=== PATIENT | male | born 1970 | race Caucasian/White ===

== ENCOUNTER 2017-04-17 19:45 | Inpatient (IN) | payer OTHER ==
[~2017-04-17] VITALS: Ht 180.3 cm; Wt 79.4 kg
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
--- NOTE | ~2017-04-17 | OR ---
Unit #: [id number] #: [id number] Patient: CYNDI VASQUEZ [id number] [address] [address] [id number] I MR#: [id number] NAME: CYNDI VASQUEZ. ROOM: [facility] Date of Procedure: 04/18/2017 Admission Date: 04/17/2017 Surgeon: Matthew Gallardo M.D. : 1970 Attending Physician: Shavonne Paredes M.D. Primary Care Physician: Primary Care Physician No OPERATIVE REPORT PREOPERATIVE DIAGNOSES 1. Right anterior shoulder subcutaneous abscess. 2. Right shoulder septic acromioclavicular joint. POSTOPERATIVE DIAGNOSES 1. Right anterior shoulder subcutaneous abscess. 2. Right shoulder septic acromioclavicular joint. 3. Osteomyelitis, right distal clavicle. PROCEDURES PERFORMED 1. Irrigation and debridement of right shoulder subcutaneous abscess. 2. Arthrotomy of acromioclavicular joint with irrigation and debridement. 3. Right distal clavicle excision. MOHS SURGEON/GENERAL DERMATOLOGIST Franko Mccollum, PGY-2. ANESTHESIA General. ESTIMATED BLOOD LOSS 10 mL. COMPLICATIONS None apparent. SPECIMENS 1. Cultures to microbiology. 2. Distal clavicle bone to pathology. INDICATIONS FOR PROCEDURE Cyndi is a 46-year-old gentleman with a history suspicious for IV drug abuse, although, he denies this currently. He has a swollen erythematous area of the right shoulder. It began apparently over the AC joint. He has an elevated ESR and CRP. Overall, exam and clinical history consistent with AC joint septic arthritis and a large subcutaneous abscess. We discussed irrigation and debridement with arthrotomy of the AC joint with possible distal clavicle excision. He elected to proceed. DESCRIPTION OF PROCEDURE The patient was identified in the preoperative holding area. The operative site was marked. Preoperative antibiotics were administered. Unit #: [id number] #: [id number] Patient: CYNDI VASQUEZ The patient was brought to the operating room and placed supine on the operating table. A general anesthetic was induced. The patient was positioned in a semi-recumbent position with the head of the bed elevated. A bump was placed behind the ipsilateral shoulder. The right arm was prepped and draped in sterile fashion (1) over the AC joint. A saber style incision was made over the area of fluctuance directly over the AC joint. Immediately upon entering through the subcutaneous tissues, a large volume of purulent fluid was encountered. This was cultured. This was evacuated with Yankauer suction. There was subcutaneous fat necrosis and mucopurulent fluid and debris throughout this area. It was brought undermining of the subcutaneous tissues. There was also destruction of the underlying fascia. The wound was irrigated thoroughly and debrided with rongeurs and curettes. There was a clear perforation through the superior AC joint capsule. There was some exposure in the distal clavicle shaft itself and dehiscence of the deltotrapezial fascia in this location. Once we had adequately debrided and irrigated the subcutaneous space down to and including fascia, we then opened the AC joint formally. We extended the perforated area proximally along the shaft of the clavicle and performed subperiosteal dissection and placed Hohmann's around the shaft. The AC joint itself was debrided with rongeurs. Distal clavicle was inspected. Small rongeur was used to assess the firmness of the distal clavicle. The bone here was extremely soft and I was able to essentially bite off a large portion of the distal clavicle with a rongeur alone. This was clinically consistent with osteomyelitis of the distal clavicle. The distal clavicle biopsies were taken with a rongeur. A small microsagittal saw was then used to resect an additional 5 mm of distal clavicle. This afforded better access to the AC joint as well. We continued to irrigate out the area down to the subacromial space. There was no fluid in the subacromial space itself. Once we had adequately debrided this area, we closed the deltotrapezial fascia with a running 0 PDS. We left a small rent open in the AC joint, drained any fluid, and for drainage of any reaccumulating fluid in the AC joint. We then closed the skin incision partially with 3-0 nylon, left the central portion open, packed with Betadine soaked Kerlix. Sterile dressings were applied. DISPOSITION Stable to the recovery room. POSTOPERATIVE PLAN I will follow up the results of the cultures. He will require dressing changes over the superior aspect of the clavicle. Dictated by... Matthew Gallardo M.D. JOSE/allison TD: 04/19/2017 13:16 JOB #: [id number] Unit #: [id number] #: [id number] Patient: CYNDI VASQUEZ OPERATIVE REPORT Page 1 of 1 X Matthew Gallardo MD PROCEDURE OPERATIVE NOTE
--- NOTE | ~2017-04-17 | CR230 ---
[facility] A Service of [facility] & [facility] RADIOLOGY TEXT RESULTS PATIENT: CYNDI VASQUEZ LOCATION: [facility] 465-01 : 74 UNIT #: [id number] AGE: [address]: Shavonne Paredes MD SEX: M ORDER DR: [id number] [place] [id number] [facility]. [place], [place] [address] [id number] I MR#: [id number] Acc #: [id number] NAME: CYNDI VASQUEZ. : 1970 SEX: M STUDY DATE/TIME: 04/17/2017 21:54 UNIT: [facility] ROOM: [facility] STUDY DESCRIPTION: CR Shoulder Min 2 View Rt Attending Physician: Shavonne Paredes M.D. Ordering Physician: Angel Rincon P.A.-C. Primary Care Physician: Primary Care Physician No MEDICAL IMAGING REPORT This report is preliminary unless electronic signature is present EXAM Right shoulder 04/17/2017 HISTORY 46-year-old male with right shoulder pain and redness for 5 days. No specific injury. COMPARISON Chest 10/13/2010. FINDINGS Two views of the right shoulder demonstrate no acute fracture or dislocation. There is mild widening of the acromioclavicular joint, measuring 1 cm in separation. This is nonspecific. There is evidence of soft tissue swelling overlying the acromioclavicular joint. Correlate for any clinical symptoms of infection. IMPRESSION 1. No acute fracture or dislocation. 2. Mild soft tissue swelling overlying the acromioclavicular joint with equivocal widening of the AC joint, measuring up to 1 cm in separation. This is nonspecific. Infection not excluded in the appropriate clinical setting. If clinically warranted, consider further characterization with a nonemergent contrast-enhanced shoulder MRI. Dictated by... Romeo Montes M.D. THIS IS AN ELECTRONICALLY VERIFIED REPORT Romeo Montes M.D. at 04/18/2017 2:43 PM JUAN/birgit STS. [facility] A Service of [facility] & [facility] RADIOLOGY TEXT RESULTS PATIENT: CYNDI VASQUEZ LOCATION: [place] [address] : [birth year] UNIT #: [id number] AGE: [address]: Shavonne Paredes MD SEX: M ORDER DR: TD: 04/18/2017 08:35 JOB #: [id number] MEDICAL IMAGING REPORT Page 1 of 1 COPY
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
[~2017-04-17 19:45] MED LIST: ALPRAZOLAM; FLEXERIL PO; LEXAPRO; MEDROL DOSEPAK4 MG PO; RISPERIDONE; TRAZODONE
[2017-04-17 22:34] LABS: BASOPHIL# 0.1 X10e3 (0-0.3); BASOPHIL% 0.3 % (0-2.5); EOSINOPHIL# 0.2 X10e3 (0-0.7); EOSINOPHIL% 0.9 % (0.0-7.0); HEMATOCRIT 41.5 % (38.0-50.0); LYMPHOCYTE# 2.2 X10e3 (1.0-3.5); LYMPHOCYTE% 10.9 % (17.0-45.0); MEAN CELL VOLUME 84.1 FL (83-96); MEAN CORPUSCULAR HEMOGLOBIN 28.4 PG (28-34); MEAN CORPUSCULAR HGB CONC 33.7 g/dL (30-36); MEAN PLATELET VOLUME 6.9 FL (6.5-11.5); MONOCYTE# 1.4 X10e3 (0-1.0); MONOCYTE% 6.7 % (3.0-12.0); NEUTROPHIL# 16.4 X10e3 (1.5-7.1); NEUTROPHIL% 81.2 % (40-75); PLATELET COUNT 383 X10e3 (140-420); RED BLOOD COUNT 4.93 X10e (3.90-5.60); RED CELL DISTRIBUTION WIDTH 13.6 % (11.0-15.5); WHITE BLOOD COUNT 20.2 X10e3 (4.0-10.5)
[2017-04-17 22:35] LABS: DIFF IND YES
[2017-04-17 22:38] LABS: ALBUMIN SERUM 3.2 g/dL (3.5-5.0); BILIRUBIN,TOTAL 0.6 mg/dL (0.2-2.0); CALCIUM SERUM 9.1 mg/dL (8.4-10.2); GLOM FILT RATE Estimated 91.1 mL/min (>60); POTASSIUM 3.7 mmol/L (3.5-5.1); PROTEIN TOTAL SERUM 8.1 g/dL (6.0-8.3)
[2017-04-17] MEDS ORDERED: IBUPROFEN800 MG PO (22:43)
[2017-04-17] MEDS ORDERED: NEURONTIN800 MG PO (22:43)
[2017-04-17] MEDS ORDERED: FLEXERIL10 MG PO (22:43)
[2017-04-17] MEDS ORDERED: ZANTAC150 MG PO (22:44)
[2017-04-17 23:12] LABS: PLATELET ESTIMATE NORMAL (NORMAL); RBC NORMAL YES
[2017-04-18 00:46] LABS: URINE SOURCE CLEAN CATCH
[2017-04-18 00:57] LABS: URINE APPEARANCE CLEAR; URINE BILIRUBIN NEG (NEG); URINE BLOOD NEG (NEG); URINE COLOR YELLOW; URINE GLUCOSE NEG (NEG); URINE KETONE NEG (NEG); URINE LEUKOCYTE ESTERASE TRACE (NEG); URINE NITRATE NEG (NEG); URINE PH 6.5 (5-8); URINE PROTEIN TRACE (NEG); URINE SPECIFIC GRAVITY 1.017 (1.003-1.035)
[2017-04-18 01:00] LABS: CULTURE INDICATED? YES; URBCS1 AUWI 0-2 /[HPF] (0-2); URINE BACTERIA AUWI NEG (NEGATIVE); URINE SQUAMOUS EPITHELIAL CELL NONE SEEN /[HPF]
[2017-04-18 01:08] LABS: AMPHETAMINE POS (NEG); BARBITURATES NEG (NEG); BENZODIAZEPINES NEG (NEG); COCAINE NEG (NEG); MARIJUANA NEG (NEG); OPIATES POS (NEG); TRICYCLIC ANTIDEPRESSANTS NEG (NEG); U METHADONE NEG (NEG)
[2017-04-18 04:11] LABS: BASOPHIL% 0.2 % (0-2.5); EOSINOPHIL# 0.2 X10e3 (0-0.7); EOSINOPHIL% 1.2 % (0.0-7.0); HEMOGLOBIN 13.4 gm/dL (13.0-16.0); LYMPHOCYTE% 10.6 % (17.0-45.0); MEAN CELL VOLUME 84.3 FL (83-96); MEAN CORPUSCULAR HEMOGLOBIN 27.5 PG (28-34); MEAN CORPUSCULAR HGB CONC 32.6 g/dL (30-36); MONOCYTE# 1.3 X10e3 (0-1.0); MONOCYTE% 6.7 % (3.0-12.0); NEUTROPHIL# 15.4 X10e3 (1.5-7.1); NEUTROPHIL% 81.3 % (40-75); PLATELET COUNT 338 X10e3 (140-420); RED BLOOD COUNT 4.87 X10e (3.90-5.60); RED CELL DISTRIBUTION WIDTH 13.8 % (11.0-15.5); WHITE BLOOD COUNT 18.9 X10e3 (4.0-10.5)
[2017-04-18 04:12] LABS: DIFF IND NO
[2017-04-18 04:13] LABS: BUN/CREATININE RATIO 13.33; CALCIUM SERUM 8.5 mg/dL (8.4-10.2); CREATININE SERUM 0.9 mg/dL (0.6-1.4); GLOM FILT RATE Estimated 103.5 mL/min (>60); POTASSIUM 3.7 mmol/L (3.5-5.1)
[2017-04-19 03:26] LABS: HEMATOCRIT 36.1 % (38.0-50.0); HEMOGLOBIN 11.9 gm/dL (13.0-16.0); MEAN CELL VOLUME 84.7 FL (83-96); MEAN CORPUSCULAR HEMOGLOBIN 27.9 PG (28-34); MEAN PLATELET VOLUME 6.9 FL (6.5-11.5); RED BLOOD COUNT 4.27 X10e (3.90-5.60); RED CELL DISTRIBUTION WIDTH 13.9 % (11.0-15.5); WHITE BLOOD COUNT 14.9 X10e3 (4.0-10.5)
[2017-04-19 03:57] LABS: BUN/CREATININE RATIO 8.75; CREATININE SERUM 0.8 mg/dL (0.6-1.4); GLOM FILT RATE Estimated 108.7 mL/min (>60); POTASSIUM 3.1 mmol/L (3.5-5.1)
[2017-04-20 07:00] LABS: HEMATOCRIT 38.6 % (38.0-50.0); HEMOGLOBIN 12.8 gm/dL (13.0-16.0); MEAN CELL VOLUME 85.1 FL (83-96); MEAN CORPUSCULAR HEMOGLOBIN 28.3 PG (28-34); MEAN CORPUSCULAR HGB CONC 33.2 g/dL (30-36); MEAN PLATELET VOLUME 7.1 FL (6.5-11.5); RED BLOOD COUNT 4.53 X10e (3.90-5.60); RED CELL DISTRIBUTION WIDTH 13.8 % (11.0-15.5); WHITE BLOOD COUNT 10.2 X10e3 (4.0-10.5)
[2017-04-20 07:34] LABS: CALCIUM SERUM 8.5 mg/dL (8.4-10.2); GLOM FILT RATE Estimated 91.1 mL/min (>60); POTASSIUM 4.1 mmol/L (3.5-5.1)
== END 2017-04-20 17:15 | disposition left against medical advice (07) | DRG 464 ==
LOC: CFTX 19:45 → CED 19:45 → CFTX 22:02 → C4C 23:55 → CEDOF 23:55 → CFTX 04-18 00:05 → C4C 04-18 01:00 → CEDOF 04-18 01:00 → C4C 04-18 01:00
PROVIDERS: Internal Medicine; Orthopaedic Surgery; Physician Assistant
PROC: 0JBD0ZZ Excision of Right Upper Arm Subcutaneous Tissue and Fascia, Open Approach (ICD-10-PCS; 2017-04-18)
PROC: 0PB90ZX Excision of Right Clavicle, Open Approach, Diagnostic (ICD-10-PCS; 2017-04-18)
PROC: 0RBG0ZZ Excision of Right Acromioclavicular Joint, Open Approach (ICD-10-PCS; principal; 2017-04-18 17:00)
PROC: B246YZZ Ultrasonography of Right and Left Heart using Other Contrast (ICD-10-PCS; 2017-04-19)
DX: M00.811 Arthritis due to other bacteria, right shoulder (principal); L02.413 Cutaneous abscess of right upper limb; T81.30XA Disruption of wound, unspecified, initial encounter; M86.8X1 Other osteomyelitis, shoulder; N39.0 Urinary tract infection, site not specified; Z88.5 Allergy status to narcotic agent; J44.9 Chronic obstructive pulmonary disease, unspecified; F17.210 Nicotine dependence, cigarettes, uncomplicated; K21.9 Gastro-esophageal reflux disease without esophagitis; Z82.49 Family history of ischemic heart disease and other diseases of the circulatory system; Z83.3 Family history of diabetes mellitus; Z80.9 Family history of malignant neoplasm, unspecified; M54.9 Dorsalgia, unspecified; F19.10 Other psychoactive substance abuse, uncomplicated; B95.61 Methicillin susceptible Staphylococcus aureus infection as the cause of diseases classified elsewhere
CPT/HCPCS: 36415; 73030; 80048; 80053; 80202; 80307; 81003; 83605; 85025; 85027; 85652; 86140; 87040; 87070; 87075; 87077; 87086; 87186; 87205; 88307; 88311; 93306; 96365; 96366; 96367; 99284; J0330; J1170; J2250; J2270; J2543; J3010; J3370

== ENCOUNTER 2017-05-16 02:10 | Emergency (ER) | payer OTHER ==
[~2017-05-16] VITALS: Ht 182.9 cm; Wt 79.4 kg
[~2017-05-16 02:10] MED LIST changes: +FLEXERIL10 MG PO; +IBUPROFEN800 MG PO; +NEURONTIN800 MG PO; +ZANTAC150 MG PO
== END 2017-05-16 04:30 | disposition left against medical advice (07) ==
LOC: CED 02:10
DX: Z53.21 Procedure and treatment not carried out due to patient leaving prior to being seen by health care provider (principal)